=== PATIENT | female | born 1975 | race Caucasian/White ===

== ENCOUNTER 2018-04-22 07:38 | Day surgery (SDC) | payer BC ==
[~2018-04-22] VITALS: Ht 172.7 cm; Wt 68.0 kg
[~2018-04-22 07:38] MED LIST: CLARITIN10 MG PO; METAMUCIL0.52 GM PO; ZYRTEC10 M3 PO
[2018-04-22 08:01] VITALS: BP 142/96
[2018-04-22 14:29] VITALS: BP 137/96
[2018-04-22 19:54] VITALS: BP 134/80
[2018-04-23 00:05] VITALS: BP 133/79
[2018-04-23 03:48] VITALS: BP 129/75
[2018-04-23 06:27] LABS: HEMATOCRIT 35.7 % (36.0-46.0); HEMOGLOBIN 11.7 G/DL (11.9-15.5); MCH 29.6 PG (29.0-34.0); MCHC 32.8 G/DL (30.0-36.0); MCV 90.4 FL (83-99); PLATELET COUNT 164 K/uL (156-360); RBC DIS.WIDTH-CV 12.6 % (11.8-14.6); RBC DIS.WIDTH-SD 41.4 % (39-53); RED BLOOD COUNT 3.95 M/uL (3.80-5.20); WHITE BLOOD COUNT 7.2 K/uL (4.1-10.2)
[2018-04-23 07:30] VITALS: BP 151/98
[2018-04-23] MEDS ORDERED: HYDROCODON-ACE1 EAC7 PO (09:50)
== END 2018-04-23 10:57 | disposition home or self-care (01) ==
LOC: SDC 07:38 → 2SOUTH 11:42 → ENRESERV 11:43 → SDC 11:54 → ENRESERV 12:45 → SDC 13:09 → 2EAST 14:04 → ENPENDDIS 04-23 10:33 → 2EAST 04-23 10:57
PROVIDERS: Obstetrics & Gynecology Obstetrics
PROC: 0UT74ZZ Resection of Bilateral Fallopian Tubes, Percutaneous Endoscopic Approach (ICD-10-PCS; principal; 2018-04-22)
PROC: 0UT94ZZ Resection of Uterus, Percutaneous Endoscopic Approach (ICD-10-PCS; principal; 2018-04-22)
PROC: 0TJB8ZZ Inspection of Bladder, Via Natural or Artificial Opening Endoscopic (ICD-10-PCS; principal; 2018-04-22)
PROC: 0UTC4ZZ Resection of Cervix, Percutaneous Endoscopic Approach (ICD-10-PCS; principal; 2018-04-22)
DX: N92.0 Excessive and frequent menstruation with regular cycle (principal); N93.9 Abnormal uterine and vaginal bleeding, unspecified; N80.0 Endometriosis of uterus
CPT/HCPCS: 85027; 88307; G0378; J0131; J1100; J1170; J1580; J1885; J1940; J2250; J2405; J2710; J3010; J7050; J7120; J7643; Q0175; S0020